=== PATIENT | female | born 1975 | race African-American/Black ===

== ENCOUNTER 2020-07-07 20:25 | Inpatient (IN) ==
[2020-07-07] MEDS ORDERED: DIPHTHERIA/TETANUS ADULT VACCINE 0.5 ML SYRINGE IM ONE (21:10)
[2020-07-07] MEDS ORDERED: HYDROmorphone 2 MG/1 ML VIAL IV STA (21:10)
[2020-07-07] MEDS ORDERED: LACTATED RINGERS 1,000 ML IV STA (21:10)
[2020-07-07 21:23] LABS: Basophils # 0.1 10*3/uL (0.0-0.2); Basophils % 0.7 % (0.0-0.8); Eosinophils # 0.2 10*3/uL (0.0-0.87); Eosinophils % 2.6 % (0.00-10.9); Hemoglobin 12.8 GM/DL (12.0-16.0); Immature Granulocytes % 0.9 %; Immature Granulocytes Absolute 0.07 #; Lymphocytes # 3.4 10*3/uL (1.4-4.0); Lymphocytes % 45.8 % (21.3-54.2); Mean Corpuscular HGB Conc 30.5 GM/DL (32-36); Mean Corpuscular Volume 91.5 FL (87-102); Mean Platelet Volume 9.8 FL (9.6-12.0); Monocytes % 9.4 % (1.7-12.7); Neutrophils % 40.6 % (38.7-73.9); Platelet Count 342 T/CUMM (130-400); Red Blood Count 4.59 MC/CUMM (3.8-5.5); Red Cell Distribution Width 16.3 % (9.3-17.3); White Blood Count 7.4 T/CUMM (4-12)
[2020-07-07 21:31] LABS: PT Patient Result 10.8 SECS (9.8-11.9); Partial Thromboplastin Time 24.2 SECS (23.9-33.8)
[2020-07-07 21:40] LABS: Albumin 3.7 G/DL (3.4-5.0); Bilirubin,Total 0.5 MG/DL (0.2-1.0); Calcium 8.7 MG/DL (8.5-10.1); Osmolality,Calculated 277.8 MOS/KG (273-304); Total Protein 8.2 G/DL (5.0-7.5)
[2020-07-07] MEDS ORDERED: GENTAMICIN INJ 120 MG in SODIUM CHLORIDE 0.9% 100 ML IV STA (22:04)
[2020-07-07] MEDS ORDERED: MAGNESIUM HYDROXIDE SUSP 30 ML UDCUP PO PRN (22:06)
[2020-07-07] MEDS ORDERED: ceFAZolin 1,000 MG VIAL ONE (22:07)
[2020-07-07] MEDS ORDERED: ceFAZolin 2,000 MG in PREMIX 1 EACH IV STA (22:12)
[2020-07-07] MEDS ORDERED: SEVOFLURANE 1 UNIT/15 MINUTE INH ONE ×2 (22:14→23:37)
[2020-07-07] MEDS ORDERED: LIDOCAINE 2% 5 ML VIAL ONE (22:14)
[2020-07-07] MEDS ORDERED: ROCURONIUM 50 MG/5 ML VIAL IV ONE (22:14)
[2020-07-07] MEDS ORDERED: propofoL 200 MG/20 ML VIAL IV ONE (22:14)
[2020-07-07] MEDS ORDERED: SUCCINYLCHOLINE 200 MG/10 ML VIAL ONE (22:14)
[2020-07-07 23:01] LABS: Bilirubin,Urine Negative (Negative); Blood, Urine Small mg/dL (Negative); Glucose,Urine (UA) Negative (Negative); Hyaline Casts,Urine 6 /LPF (0-3); Ketones,Urine Negative (Negative); Mucus,Urine Occasional /LPF (Occasional); Nitrite,Urine Negative (Negative); Protein,Urine 30 MG/DL; RBC,Urine 1 /HPF (0-4); Renal Epithelial Cells,Urine Occasional /HPF (<1); Squamous Epithelial Cell,Urine Occasional /HPF (0-10); Urine Appearance Slightly Hazy (Clear); Urine Color Yellow (Yellow); Urine Urobilinogen < 2.0 EU/DL (0.2-1.0); WBC,Urine 2 /HPF (0-6)
[2020-07-07] MEDS ORDERED: LACTATED RINGERS 1,000 ML IV ONE (23:17)
[2020-07-07] MEDS ORDERED: PHENYLEPHRINE 1 MG/10 ML SYRINGE IV ONE ×3 (23:18→23:37)
[2020-07-07 23:21] LABS: Barbiturates Screen,Urine Negative (Negative); Benzodiazepines Screen,Urine Negative (Negative); Cannabinoid Screen,Urine Positive (Negative); Opiate Screen,Urine Negative (Negative); Phencyclidine Screen,Urine Negative (Negative)
[2020-07-07] MEDS ORDERED: ePHEDrine 50 MG/ML VIAL ONE (23:35)
[2020-07-08] MEDS: HYDROmorphone 2 MG/1 ML VIAL IV PRN ×3 (00:55→01:05)
[2020-07-08] MEDS: SODIUM CHLORIDE 0.9% 1,000 ML IV SCH ×2 (01:58→13:30)
[2020-07-08] MEDS: ENOXAPARIN 40 MG/0.4 ML SYRINGE SUBCUT SCH ×2 (01:58→21:36)
[2020-07-08] MEDS ORDERED: POTASSIUM CHLORIDE 20 MEQ TABLET PO PRN (07:56)
[2020-07-08] MEDS ORDERED: DEXTROSE 50% 25 GM/50 ML VIAL IV PRN ×2 (07:58→09:35)
[2020-07-08] MEDS ORDERED: GLUCAGON 1 MG VIAL IM PRN (07:58)
[2020-07-08] MEDS ORDERED: hydrALAZINE 20 MG/1 ML VIAL IV PRN (07:59)
[2020-07-08 08:49] LABS: Calcium 8.6 MG/DL (8.5-10.1); Osmolality,Calculated 268.2 MOS/KG (273-304); Potassium 4.3 MMOL/L (3.5-5.1)
[2020-07-08 08:57] LABS: Basophils % 0.2 % (0.0-0.8); Eosinophils % 0.2 % (0.00-10.9); Hematocrit 38.4 VOL% (35.7-47.0); Hemoglobin 11.7 GM/DL (12.0-16.0); Immature Granulocytes % 0.5 %; Immature Granulocytes Absolute 0.04 #; Lymphocytes # 1.2 10*3/uL (1.4-4.0); Lymphocytes % 13.2 % (21.3-54.2); Mean Corpuscular HGB Conc 30.5 GM/DL (32-36); Mean Corpuscular Volume 91.9 FL (87-102); Mean Platelet Volume 10.1 FL (9.6-12.0); Monocytes % 6.4 % (1.7-12.7); Neutrophils % 79.5 % (38.7-73.9); Red Blood Count 4.18 MC/CUMM (3.8-5.5); Red Cell Distribution Width 16.5 % (9.3-17.3); White Blood Count 8.8 T/CUMM (4-12)
[2020-07-08] MEDS ORDERED: ceFAZolin 1,000 MG VIAL INTRAPERIT SCH (09:00)
[2020-07-08] MEDS ORDERED: PNEUMOCOCCAL VACCINE (13 VALENT) 0.5 ML SYRINGE IM ONE (09:00)
[2020-07-08] MEDS ORDERED: INFLUENZA VIRUS VACCINE 0.5 ML SYRINGE IM ONE (09:00)
[2020-07-08 09:03] LABS: Platelet Count 262 T/CUMM (130-400)
[2020-07-08 09:23] LABS: Anisocytosis 1+; Platelet Estimate Normal
[2020-07-08 09:24] LABS: Macrocytosis 1+
[2020-07-08] MEDS: amLODIPine 5 MG TABLET PO SCH (09:37)
[2020-07-08] MEDS: ceFAZolin 1,000 MG in SYRINGE 1 EACH IV SCH ×2 (11:19→19:59)
[2020-07-08] MEDS: INSULIN REGULAR 100 UNIT/ML SUBCUT SCH ×2 (11:25→18:13)
[2020-07-08] MEDS: SODIUM CHLORIDE 0.9% IV SCH (13:22)
[2020-07-08] MEDS: GENTAMICIN IV SCH (13:22)
[2020-07-08] MEDS ORDERED: MAGNESIUM SULF RIDER 2 GM in PREMIX 1 EACH IV ONE (15:51)
[2020-07-08] MEDS ORDERED: LORazepam 2 MG/1 ML VIAL IV PRN (15:55)
[2020-07-09] MEDS: ceFAZolin 1,000 MG in SYRINGE 1 EACH IV SCH ×3 (02:46→20:44)
[2020-07-09] MEDS: SODIUM CHLORIDE 0.9% 1,000 ML IV SCH ×4 (02:47→16:04)
[2020-07-09 05:32] LABS: Basophils % 0.3 % (0.0-0.8); Eosinophils # 0.2 10*3/uL (0.0-0.87); Eosinophils % 3.7 % (0.00-10.9); Hematocrit 33.6 VOL% (35.7-47.0); Hemoglobin 10.6 GM/DL (12.0-16.0); Immature Granulocytes % 0.3 %; Immature Granulocytes Absolute 0.02 #; Lymphocytes # 1.5 10*3/uL (1.4-4.0); Lymphocytes % 25.9 % (21.3-54.2); Mean Corpuscular HGB Conc 31.5 GM/DL (32-36); Mean Corpuscular Volume 90.6 FL (87-102); Mean Platelet Volume 9.5 FL (9.6-12.0); Monocytes % 8.8 % (1.7-12.7); Platelet Count 220 T/CUMM (130-400); Red Blood Count 3.71 MC/CUMM (3.8-5.5); Red Cell Distribution Width 16.5 % (9.3-17.3); White Blood Count 5.9 T/CUMM (4-12)
[2020-07-09 05:58] LABS: Calcium 8.1 MG/DL (8.5-10.1); Osmolality,Calculated 273.7 MOS/KG (273-304); Potassium 3.7 MMOL/L (3.5-5.1)
[2020-07-09 06:05] LABS: Risk Ratio 2.37; VLDL CHOLESTEROL 18.2 MG/DL
[2020-07-09] MEDS: MULTIVITAMIN (CENTRUM) TABLET PO SCH (08:40)
[2020-07-09] MEDS: THIAMINE 100 MG TABLET PO SCH (08:40)
[2020-07-09] MEDS: PANTOPRAZOLE 40 MG TABLET PO SCH (08:40)
[2020-07-09] MEDS: INSULIN REGULAR 100 UNIT/ML SUBCUT SCH ×3 (08:40→17:22)
[2020-07-09] MEDS: amLODIPine 5 MG TABLET PO SCH (08:40)
[2020-07-09] MEDS: FOLIC ACID 1 MG TABLET PO SCH (08:40)
[2020-07-09] MEDS: BACITRACIN OINT 0.9 GM PACK TOP SCH ×2 (13:36→21:22)
[2020-07-09] MEDS: GENTAMICIN IV SCH (13:36)
[2020-07-09] MEDS: SODIUM CHLORIDE 0.9% IV SCH (13:36)
[2020-07-09] MEDS ORDERED: amLODIPine 5 MG TABLET PO ONE (14:30)
[2020-07-09] MEDS: ENOXAPARIN 40 MG/0.4 ML SYRINGE SUBCUT SCH (22:59)
[2020-07-10] MEDS: ceFAZolin 1,000 MG in SYRINGE 1 EACH IV SCH ×2 (02:43→10:34)
[2020-07-10] MEDS: SODIUM CHLORIDE 0.9% 1,000 ML IV SCH ×2 (03:11→09:43)
[2020-07-10 05:08] LABS: Basophils % 0.5 % (0.0-0.8); Eosinophils # 0.2 10*3/uL (0.0-0.87); Eosinophils % 3.8 % (0.00-10.9); Hematocrit 35.1 VOL% (35.7-47.0); Hemoglobin 10.8 GM/DL (12.0-16.0); Immature Granulocytes % 0.5 %; Immature Granulocytes Absolute 0.03 #; Lymphocytes # 1.6 10*3/uL (1.4-4.0); Lymphocytes % 26.7 % (21.3-54.2); Mean Corpuscular HGB Conc 30.8 GM/DL (32-36); Mean Corpuscular Volume 93.1 FL (87-102); Mean Platelet Volume 9.9 FL (9.6-12.0); Monocytes % 7.4 % (1.7-12.7); Neutrophils % 61.1 % (38.7-73.9); Platelet Count 215 T/CUMM (130-400); Red Blood Count 3.77 MC/CUMM (3.8-5.5); Red Cell Distribution Width 16.2 % (9.3-17.3); White Blood Count 5.9 T/CUMM (4-12)
[2020-07-10 05:30] LABS: Calcium 8.1 MG/DL (8.5-10.1); Osmolality,Calculated 274.5 MOS/KG (273-304); Potassium 3.5 MMOL/L (3.5-5.1)
[2020-07-10] MEDS: INSULIN REGULAR 100 UNIT/ML SUBCUT SCH ×2 (07:14→11:15)
[2020-07-10] MEDS: BACITRACIN OINT 0.9 GM PACK TOP SCH (08:12)
[2020-07-10] MEDS: MULTIVITAMIN (CENTRUM) TABLET PO SCH (08:12)
[2020-07-10] MEDS: THIAMINE 100 MG TABLET PO SCH (08:12)
[2020-07-10] MEDS: PANTOPRAZOLE 40 MG TABLET PO SCH (08:12)
[2020-07-10] MEDS: FOLIC ACID 1 MG TABLET PO SCH (08:12)
[2020-07-10] MEDS ORDERED: amLODIPine 5 MG TABLET PO SCH (09:00)
[2020-07-10 11:32] VITALS: BP 151/112
[2020-07-10] MEDS ORDERED: lisinopriL 5 MG TABLET PO SCH (21:00)
== END 2020-07-10 11:30 | disposition home or self-care (01) | DRG 384 ==
LOC: N.ED 20:25 → N.EDINP 22:06 → N.3E 07-08 00:51
PROVIDERS: ADMIT Orthopaedic Surgery; ATTEND Orthopaedic Surgery